=== PATIENT | female | born 1990 | race Caucasian/White ===

== ENCOUNTER 2021-06-24 18:08 | Observation (INO) | END 2021-06-24 20:06 | disposition home or self-care (01) | LOC: 1NENULAB | PROVIDERS: ADMIT Registered Nurse; ATTEND Registered Nurse ==

== ENCOUNTER → 2021-06-28 21:00 | Observation (INO) ==
[~2021-06-28 21:00] MED LIST: Acetaminophen IV 1,000 MG/100 ML BAG IVPB ONE; Ringers Solution, Lactated 1,000 ML IVC ONE; Ringers Solution, Lactated 1,000 ML ONE
[2021-06-28 21:22] LABS: Bacteria,Urine Few per hpf (None-Few); Bilirubin,Urine Negative (Negative); Blood,Urine Negative (Negative); Clarity,Urine Turbid (Clear); Color,Urine Yellow (Yellow); Glucose,Urine (UA) Normal (Normal); Ketones,Urine 150 mg/dL (Negative); Leukocyte Esterase,Urine Negative (Negative); Mucus,Urine Few per lpf (None-Few); Nitrite,Urine Negative (Negative); Protein,Urine 30 mg/dL (Neg-Trace); RBC,Urine 0-3 per hpf (0-3); Specific Gravity,Urine 1.011 (1.010-1.025); Squamous Epithelial Cell,Urine Moderate per hpf (None-Few); Urobilinogen,Urine Normal (Normal)
== END | disposition home or self-care (01) ==
LOC: 1NENULAB
PROVIDERS: ADMIT Obstetrics & Gynecology; ATTEND Obstetrics & Gynecology

== ENCOUNTER 2021-07-29 08:44 | Inpatient (IN) ==
[2021-07-29] MEDS ORDERED: Azithromycin 500 MG in 0.9 % Sodium Chloride 250 ML IVPB PRN (08:52)
[2021-07-29] MEDS ORDERED: Lidocaine 1% 20 ML MDV ID PRN (08:52)
[2021-07-29] MEDS ORDERED: Metoclopramide 10 MG/2 ML VIAL IVP PRN (08:52)
[2021-07-29] MEDS ORDERED: Famotidine 20 MG/2 ML VIAL IVP PRN (08:52)
[2021-07-29] MEDS ORDERED: Ondansetron 4 MG/2 ML VIAL IVP PRN (08:52)
[2021-07-29] MEDS ORDERED: Naloxone 0.4 MG/ML INJ IVP PRN (08:52)
[2021-07-29] MEDS ORDERED: *HR* Nalbuphine 10 MG/ML AMPUL IV PRN (08:52)
[2021-07-29] MEDS ORDERED: Oxytocin 20 units/ LR 1000 mL 20 UNIT/1,000 ML BAG IVC SCH (09:00)
[2021-07-29] MEDS ORDERED: Ringers Solution, Lactated 1,000 ML IVC SCH (09:00)
[2021-07-29] MEDS ORDERED: Penicillin G Potassium 5,000,000 UNIT in 0.9 % Sodium Chloride Mini Bag 100 ML IVPB ONE (09:00)
[2021-07-29 10:09] LABS: Basophils % 0.2 %; Eosinophils # 0.1 K/mcL (0.0-0.6); Eosinophils % 0.5 %; Hematocrit 34.6 % (35.3-44.9); Hemoglobin 11.3 g/dL (11.5-15.4); Immature Granulocytes % 0.8 % (0-4); Lymphocytes # 2.1 K/mcL (0.6-4.6); Lymphocytes % 22.2 %; Mean Corpuscular HGB Conc 32.7 g/dL (31.6-35.5); Mean Corpuscular Hemoglobin 28.2 pg (28.0-33.3); Mean Corpuscular Volume 86.3 fL (83.0-100.0); Mean Platelet Volume 11.2 fL (9.4-12.4); Monocytes # 0.6 K/mcL (0.0-1.3); Monocytes % 6.4 %; Neutrophils # 6.5 K/mcL (1.6-8.9); Platelet Count 193 K/mcL (140-400); Red Blood Count 4.01 M/mcL (3.82-4.97); Red Cell Distribution Width 15.2 % (11.5-14.5); Segmented Neutrophils % 69.9 %; White Blood Count 9.3 K/mcL (4.3-11.1)
[2021-07-29 10:52] LABS: Influenza A PCR Negative (Negative); Influenza B PCR Negative (Negative); Resp. Syncytial Virus PCR Negative (Negative); SARS-CoV-2 by PCR (In House) Negative (Negative)
[2021-07-29 11:04] LABS: Amphetamine Screen,Urine Negative ng/mL (Cutoff=1000); Barbiturate Screen,Urine Negative ng/mL (Cutoff=200); Benzodiazepines Screen,Urine Negative ng/mL (Cutoff=200); Cannabinoid Screen,Urine Negative ng/mL (Cutoff = 50); Cocaine Screen,Urine Negative ng/mL (Cutoff= 300); Opiate Screen,Urine Negative ng/mL (Cutoff=300); Phencyclidine Screen,Urine Negative ng/mL (Cutoff=25)
[2021-07-29] MEDS ORDERED: EPHEDrine 50 MG/ML VIAL IVP PRN (12:12)
[2021-07-29] MEDS ORDERED: Epidural Premix (fent/bupiv) 110 ML EP SCH (12:15)
[2021-07-29] MEDS: Penicillin G Potassium 2,500,000 UNIT/105 ML MLS IVPB SCH ×2 (15:22→18:55)
[2021-07-30] MEDS ORDERED: Methylergonovine 0.2 MG/ML AMPUL IM ONE ×2 (04:39→05:00)
[2021-07-30] MEDS ORDERED: Oxytocin 20 units/ LR 1000 mL 20 UNIT/1,000 ML BAG IVC SCH (06:37)
[2021-07-30] MEDS ORDERED: Ondansetron ODT 4 MG TAB.RAPDIS SL PRN (06:37)
[2021-07-30] MEDS ORDERED: *HR* OxyCODONE Immed Rel 5 MG TABLET PO PRN (06:37)
[2021-07-30] MEDS ORDERED: Lanolin 7 G OINT...G. TP PRN (06:37)
[2021-07-30] MEDS ORDERED: Benzocaine/Menthol 56 GM AEROSOL SPRAY TP PRN (06:37)
[2021-07-30] MEDS ORDERED: Oxytocin 20 units/ LR 1000 mL 20 UNIT/1,000 ML BAG IVC ONE (06:40)
[2021-07-30] MEDS ORDERED: Prenatal Vit/FA 1 EACH TABLET PO SCH (09:00)
[2021-07-30] MEDS: Ibuprofen 600 MG TABLET PO SCH ×2 (09:01→18:43)
[2021-07-30] MEDS: Acetaminophen 325 MG TABLET PO SCH (18:44)
[2021-07-31] MEDS: Ibuprofen 600 MG TABLET PO SCH (04:30)
[2021-07-31] MEDS: Acetaminophen 325 MG TABLET PO SCH (04:30)
[2021-07-31 04:42] VITALS: O2SAT 99
[2021-07-31 07:12] VITALS: BP 102/58; TEMP 98.3
[2021-07-31 10:02] VITALS: PULSE 76
== END 2021-07-31 12:07 | disposition home or self-care (01) | DRG 560 ==
LOC: 1NENULAB 08:44 → 1NENUOBS 07-30 06:48
PROVIDERS: ADMIT Advanced Practice Midwife; ATTEND Advanced Practice Midwife